=== PATIENT | female | born 1940 | race Caucasian/White ===

== ENCOUNTER 2018-12-17 08:14 | Day surgery (SDC) | payer MEDICARE ==
[~2018-12-17] VITALS: Ht 162.6 cm; Wt 61.9 kg
[~2018-12-17 08:14] MED LIST: ACET500 PO; APRISO PO; ASPI500 PO; ATEN50 PO; ATOR10 PO; Ambien5 MG PO; ESTR1 PO; GLIM4 PO; HYDACE5 PO; Humalog Mi100 UNIT/4 SC; IBUP600 PO; INSULANI SC; INSULANPEN SC; LEVSOD50 PO; Lialda1.2 GM PO; METF500C PO; MULVITMIND PO; PIOG30 PO; Prinivil10 MG PO; Rowasa 4 G4 GM/60 ML PR; Thera Tears1 EAC1 OP
[2018-12-17] MEDS ORDERED: LIRA0.6P (09:02)
[2018-12-17] MEDS ORDERED: Aspir 8181 MG PO (09:02)
== END 2018-12-17 10:49 | disposition home or self-care (01) ==
LOC: ORSCSDS 08:14
DX: R63.4 Abnormal weight loss (principal); K64.8 Other hemorrhoids; K20.8 Other esophagitis; K29.80 Duodenitis without bleeding; K57.30 Diverticulosis of large intestine without perforation or abscess without bleeding; Z87.19 Personal history of other diseases of the digestive system; R19.4 Change in bowel habit; K21.9 Gastro-esophageal reflux disease without esophagitis; E11.9 Type 2 diabetes mellitus without complications; I73.9 Peripheral vascular disease, unspecified; I10 Essential (primary) hypertension; E78.5 Hyperlipidemia, unspecified; Z87.891 Personal history of nicotine dependence; Z79.82 Long term (current) use of aspirin; Z79.84 Long term (current) use of oral hypoglycemic drugs; Z79.899 Other long term (current) drug therapy
CPT/HCPCS: 82947; 88305; 88341; 88342; J2704; J7120

== ENCOUNTER → 2019-05-04 | Outpatient (CLI) | payer MEDICARE ==
[~2019-05-04] MED LIST changes: +Aspir 8181 MG PO; +LIRA0.6P
[2019-05-04 13:58] LABS: Calcium, Urine <5.0 mg/dL (< 17.5); Calcium, Urine Calculation Unable to Calculate mg/24hrs (42.0-353.0)
== END | disposition home or self-care (01) ==
LOC: LAB 09:34 → LAB SHORT 09:34 → LAB FUT 04-30 15:05
PROVIDERS: Internal Medicine
DX: E83.52 Hypercalcemia (principal)
CPT/HCPCS: 81050; 82340

== ENCOUNTER → 2019-09-13 | Outpatient (CLI) | payer MEDICARE | END | disposition home or self-care (01) | LOC: LAB 22:00 → LAB SHORT 22:00 → LAB FUT 09-08 16:30 | DX: K21.9 Gastro-esophageal reflux disease without esophagitis (principal) | CPT/HCPCS: 87338 ==

== ENCOUNTER 2019-11-24 19:21 | Emergency (ER) | payer MEDICARE ==
[~2019-11-24] VITALS: Ht 165.1 cm; Wt 55.3 kg
[2019-11-24 20:00] LABS: BASOPHILS ABSOLUTE AUTO 0.05 K/mm3 (0.00-0.23); BASOPHILS PERCENT AUTO 1 % (0-2); EOSINOPHILS ABSOLUTE AUTO 0.09 K/mm3 (0.00-0.68); EOSINOPHILS PERCENT AUTO 2 % (0-6); Hematocrit 41.4 % (33.0-51.0); Hemoglobin 13.4 g/dL (11.5-16.0); IMMATURE GRAN ABSOLUTE AUTO 0.01 K/mm3 (0.00-0.10); IMMATURE GRAN PERCENT AUTO 0 % (0-1); LYMPHOCYTES ABSOLUTE AUTO 1.82 K/mm3 (0.84-5.20); LYMPHOCYTES PERCENT AUTO 35 % (21-46); MONOCYTES ABSOLUTE AUTO 0.48 K/mm3 (0.16-1.47); MONOCYTES PERCENT AUTO 9 % (4-13); Mean Corpuscular HGB 29.6 pg (26.0-34.0); Mean Corpuscular HGB Conc 32.4 g/dL (31.5-36.5); Mean Corpuscular Volume 92 fL (80-100); Mean Platelet Volume 10.2 fL (9.1-12.4); NEUTROPHILS ABSOLUTE AUTO 2.83 K/mm3 (1.96-9.15); NEUTROPHILS PERCENT AUTO 54 % (41-73); Platelet Count 222 K/mm3 (150-400); RDW Coefficient Variation 12.5 % (11.7-14.2); RDW Standard Deviation 42.1 fL (35.1-46.3); Red Blood Cell Count 4.52 M/mm3 (3.80-5.20); White Blood Cell Count 5.28 K/mm3 (4.00-11.30)
[2019-11-24 20:17] LABS: Alanine Aminotransfer (ALT/SGP 20 U/L (12-78); Albumin, Blood 3.6 g/dL (3.4-5.0); Albumin/Globulin Ratio 0.9 (0.8-1.8); Alk Phos 88 U/L (50-136); Anion Gap 6 mmol/L (6-16); Aspartate Aminotrans (AST/SGOT 17 U/L (12-37); Bilirubin, Total 0.7 mg/dL (0.1-1.0); Blood Urea Nitrogen 16 mg/dL (8-24); Bun/Creatinine Ratio 17.1 (12.0-20.0); CO2, Blood 29 mmol/L (21-32); Calcium, Blood 9.8 mg/dL (8.5-10.1); Chloride, Blood 104 mmol/L (98-108); Creatinine, Blood 0.94 mg/dL (0.40-1.00); Globulin, Blood 4.1 g/dL (2.2-4.0); Glomerular Filtration Rate >60 (60-); Glucose, Blood 162 mg/dL (70-99); Potassium, Blood 3.7 mmol/L (3.5-5.5); Prothrombin Time Results 10.7 Sec (9.7-11.5); Sodium, Blood 139 mmol/L (136-145); Total Protein, Blood 7.7 g/dL (6.4-8.2)
[2019-11-24] MEDS ORDERED: Aspirin EC81 MG PO (21:54)
== END 2019-11-24 22:12 | disposition home or self-care (01) ==
LOC: ER 19:21
PROVIDERS: Physician Assistant
DX: G45.9 Transient cerebral ischemic attack, unspecified (principal); R47.01 Aphasia; E10.9 Type 1 diabetes mellitus without complications; E03.9 Hypothyroidism, unspecified; Z88.8 Allergy status to other drugs, medicaments and biological substances; Z88.2 Allergy status to sulfonamides; Z79.82 Long term (current) use of aspirin; Z87.891 Personal history of nicotine dependence; Z79.899 Other long term (current) drug therapy
CPT/HCPCS: 36415; 70450; 80053; 82947; 85025; 85610; 93005; 93010; 99285-25

== ENCOUNTER → 2020-03-30 | Outpatient (CLI) | payer MEDICARE ==
[~2020-03-30] MED LIST changes: +AMBIEN5 MG PO; +ATOR40TA PO; +Aspirin EC81 MG PO; +HYDCHL12.5 PO; +LEVO-T50 MC1 PO; +MESALAMINE PO; +METF500 PO; +OMEP20ER PO; +Plavix75 MG PO; +VICTOZA 2-0.6 MG/0.1 SC; +Zestril30 MG PO; +[UNRECOGNIZED DRUG - OTHER] PO
[2020-03-31 09:02] LABS: Stool Occult Bld Immuno 1 Negative (NEGATIVE); Stool Occult Bld Immuno 2 Negative (NEGATIVE)
== END | disposition home or self-care (01) ==
LOC: LAB 11:30
PROVIDERS: Internal Medicine
DX: E61.1 Iron deficiency (principal); E53.8 Deficiency of other specified B group vitamins
CPT/HCPCS: 82274

== ENCOUNTER 2020-07-08 08:09 | Day surgery (SDC) | payer MEDICARE ==
[~2020-07-08] VITALS: Ht 162.6 cm; Wt 51.6 kg
== END 2020-07-08 09:35 | disposition home or self-care (01) ==
LOC: ORSCSDS 08:09 → ORD 09:15 → ORSCSDS 09:15
PROVIDERS: Internal Medicine Gastroenterology
PROC: 0DB68ZX Excision of Stomach, Via Natural or Artificial Opening Endoscopic, Diagnostic (ICD-10-PCS; principal; 2020-07-08 09:15)
DX: R63.4 Abnormal weight loss (principal); R68.81 Early satiety; K44.9 Diaphragmatic hernia without obstruction or gangrene; K21.9 Gastro-esophageal reflux disease without esophagitis; I10 Essential (primary) hypertension; E11.9 Type 2 diabetes mellitus without complications; K29.80 Duodenitis without bleeding; Z86.73 Personal history of transient ischemic attack (TIA), and cerebral infarction without residual deficits; Z87.891 Personal history of nicotine dependence; Z79.84 Long term (current) use of oral hypoglycemic drugs; Z79.899 Other long term (current) drug therapy
CPT/HCPCS: 82947; 88305; 88342; J2704; J7120

== ENCOUNTER → 2023-01-26 | Outpatient (CLI) | payer MEDICARE ==
[~2023-01-26] MED LIST changes: +AMLO5 PO; +Acetaminophen650 M1 PO; +BUDESONIDE EC3 M1 PO; +THERA-D2000 UNIT PO
== END ==
LOC: LAB 10:19 → LAB SHORT 10:19 → LAB FUT 01-23 15:55
PROVIDERS: Internal Medicine Gastroenterology
DX: K51.919 Ulcerative colitis, unspecified with unspecified complications (principal)
CPT/HCPCS: 83631; 83993

== ENCOUNTER 2023-01-30 07:41 | Day surgery (SDC) | payer MEDICARE ==
[~2023-01-30] VITALS: Ht 162.6 cm; Wt 74.2 kg
[~2023-01-30 07:41] MED LIST changes: -AMLO5 PO; -Acetaminophen650 M1 PO; -BUDESONIDE EC3 M1 PO; -THERA-D2000 UNIT PO
[2023-01-30] MEDS ORDERED: Acetaminophen650 M1 PO (08:12)
[2023-01-30] MEDS ORDERED: AMLO5 PO (08:13)
[2023-01-30] MEDS ORDERED: THERA-D2000 UNIT PO (08:15)
[2023-01-30] MEDS ORDERED: BUDESONIDE EC3 M1 PO (08:16)
[2023-01-30 10:26] VITALS: BP 128/63
--- NOTE | 2023-01-30 10:59 | NUR ---
01/30/23 1059 Maritza Couch RN IV OUT, WNL, PT TOLERATED WELL.
== END 2023-01-30 10:20 | disposition home or self-care (01) ==
LOC: ORSCSDS 07:41
PROVIDERS: Internal Medicine Gastroenterology
PROC: 0DBK8ZX Excision of Ascending Colon, Via Natural or Artificial Opening Endoscopic, Diagnostic (ICD-10-PCS; principal; 2023-01-30 09:00)
PROC: 0DBP8ZX Excision of Rectum, Via Natural or Artificial Opening Endoscopic, Diagnostic (ICD-10-PCS; principal; 2023-01-30 09:00)
PROC: 0DBE8ZX Excision of Large Intestine, Via Natural or Artificial Opening Endoscopic, Diagnostic (ICD-10-PCS; principal; 2023-01-30 09:00)
DX: K62.5 Hemorrhage of anus and rectum (principal); D12.2 Benign neoplasm of ascending colon; K57.30 Diverticulosis of large intestine without perforation or abscess without bleeding; K52.9 Noninfective gastroenteritis and colitis, unspecified; D37.4 Neoplasm of uncertain behavior of colon; K64.8 Other hemorrhoids; Z87.891 Personal history of nicotine dependence; E11.22 Type 2 diabetes mellitus with diabetic chronic kidney disease; N18.4 Chronic kidney disease, stage 4 (severe); Z79.4 Long term (current) use of insulin; Z79.02 Long term (current) use of antithrombotics/antiplatelets; Z79.899 Other long term (current) drug therapy
CPT/HCPCS: 82947; 88305; J2704; J7120